=== PATIENT | female | born 1985 | race African-American/Black ===

== ENCOUNTER 2023-04-25 22:36 | Emergency (ER) | payer MEDICAID ==
[~2023-04-25] VITALS: Ht 170.2 cm; Wt 70.0 kg
[2023-04-25 22:40] VITALS: O2SAT 100
[2023-04-25] MEDS ORDERED: ACETAMINOPHEN 325MG TABLET PO ONE (23:15)
[2023-04-26 01:59] LABS: CLARITY URINE CLEAR (CLEAR); COLOR URINE YELLOW (YELLOW); GLUCOSE URINE NEGATIVE (NEGATIVE); KETONES URINE TRACE (NEGATIVE); LEUKOCYTE ESTERASE URINE TRACE (NEGATIVE); NITRITE URINE NEGATIVE (NEGATIVE); OCCULT BLOOD URINE NEGATIVE (NEGATIVE); PROTEIN URINE NEGATIVE (NEGATIVE); SPECIFIC GRAVITY URINE 1.016 (1.005-1.030); UROBILINOGEN URINE 0.2 E.U./dL (0.2-1.0)
[2023-04-26] MEDS ORDERED: NITR-87 MT (02:09)
[2023-04-26] MEDS ORDERED: TOPUD MT (02:09)
[2023-04-26 02:25] LABS: RBC URINE NONE SEEN /hpf (0-2); SQUAMOUS EPITHELIAL CELL URINE FEW /lpf (RARE/1+); WBC URINE 0-2 /hpf (0-2)
[2023-04-26 02:28] LABS: BACTERIA URINE 1+
[2023-04-26 03:00] VITALS: BP 101/51; PULSE 91; RESP 15; TEMP 97.8
== END 2023-04-26 03:37 | disposition home or self-care (01) ==
LOC: ER 22:36
DX: M54.50 Low back pain, unspecified (principal)
CPT/HCPCS: 81003; 99283